=== PATIENT | female | born 1955 | race Caucasian/White ===

== ENCOUNTER 2024-03-07 16:29 | Emergency (ER) | payer BC ==
[~2024-03-07] VITALS: Ht 152.4 cm; Wt 102.1 kg
--- NOTE | 2024-03-07 16:50 | NUR ---
The patient [facility] 78 [facility] facility SOB. 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 Attached to the monitor.
[2024-03-07] MEDS ORDERED: ACETAMINOPHEN ES 500 MG TABLET ONE (17:11)
[2024-03-07] MEDS ORDERED: predniSONE 20 MG TABLET ONE (17:11)
[2024-03-07] MEDS: predniSONE 20 MG TABLET PO ONE (17:17)
[2024-03-07] MEDS: ACETAMINOPHEN ES 500 MG TABLET PO ONE (17:17)
[2024-03-07] MEDS ORDERED: ALBUTEROL FS 2.5 MG/3 ML VIAL.NEB ONE (17:25)
[2024-03-07] MEDS ORDERED: IPRATROPIUM NEB FS 0.5 MG/2.5 ML AMPUL.NEB ONE (17:25)
[2024-03-07] MEDS: ALBUTEROL FS 2.5 MG/3 ML VIAL.NEB NEB ONE (17:36)
[2024-03-07] MEDS: IPRATROPIUM NEB FS 0.5 MG/2.5 ML AMPUL.NEB NEB ONE (17:36)
[2024-03-07 17:37] VITALS: O2SAT 97
[2024-03-07 17:47] VITALS: O2SAT 99
[2024-03-07 17:48] VITALS: O2SAT 99
[2024-03-07 17:58] VITALS: O2SAT 100
[2024-03-07] MEDS ORDERED: IBUPROFEN 600 MG TABLET ONE (18:00)
[2024-03-07 18:02] VITALS: TEMP 98
[2024-03-07] MEDS: IBUPROFEN 400 MG TABLET PO ONE (18:02)
[2024-03-07 18:03] LABS: BASOPHILS # (AUTO) 0.1 K/uL (0.0-0.2); BASOPHILS % (AUTO) 0.9 % (0.0-2.0); EOSINOPHILS # (AUTO) 0.3 K/uL (0.0-0.7); EOSINOPHILS % (AUTO) 2.4 % (0.0-6.0); HEMATOCRIT 38 % (33-45); HEMOGLOBIN 11.8 g/dL (11.5-14.8); LYMPHOCYTES # (AUTO) 3.3 K/uL (0.8-4.8); LYMPHOCYTES % (AUTO) 22.9 % (20.0-44.0); MEAN CORPUSCULAR HEMOGLOBIN 25 PG (26.0-33.0); MEAN CORPUSCULAR HGB CONC 31 g/dl (31.0-36.0); MEAN CORPUSCULAR VOLUME 81 fL (82-100); MONOCYTES # (AUTO) 0.8 K/uL (0.1-1.30); MONOCYTES % (AUTO) 5.5 % (2.0-12.0); NEUTROPHILS # (AUTO) 9.7 K/uL (1.8-8.9); NEUTROPHILS % (AUTO) 68.3 % (43.0-81.0); PLATELET COUNT (AUTO) 370 K/uL (150-450); RED BLOOD CELL COUNT(AUTO) 4.66 MIL/uL (4.0-5.2); RED CELL DISTRIBUTION WIDTH 17.4 % (11.5-15.0); WHITE BLOOD COUNT (AUTO) 14.2 K/uL (4.3-11.0)
[2024-03-07 18:14] LABS: CALCIUM, SERUM 8.8 mg/dL (8.5-10.1); CARBON DIOXIDE 25 mmol/L (21-32); CHLORIDE 106 mmol/L (98-107); CREATININE 1.4 mg/dL (0.6-1.3); GLUCOSE 207 mg/dL (74-106); POTASSIUM 4.5 mmol/L (3.5-5.1); SODIUM SERUM 139 mmol/L (136-145); UREA NITROGEN, BLOOD 31 mg/dL (7-18)
--- NOTE | 2024-03-07 19:40 | NUR ---
COVID SWAB OBTAINED AND SENT TO LAB
[2024-03-07] MEDS ORDERED: KETOROLAC TROMETHAMINE 15 MG/ML VIAL ONE (21:19)
[2024-03-07] MEDS: KETOROLAC TROMETHAMINE 15 MG/ML VIAL IV ONE (21:26)
[2024-03-07] MEDS ORDERED: diphenhydrAMINE HCL ELIX 25 MG/10 ML UDC ONE (21:59)
[2024-03-07] MEDS ORDERED: PROCHLORPERAZINE EDISYLATE 10 MG/2 ML VIAL ONE (21:59)
[2024-03-07] MEDS: diphenhydrAMINE HCL ELIX 25 MG/10 ML UDC PO ONE (22:00)
[2024-03-07] MEDS: PROCHLORPERAZINE EDISYLATE 10 MG/2 ML VIAL IVP ONE (22:00)
[2024-03-07] MEDS ORDERED: ALBU8.5H8 INH (22:31)
[2024-03-07] MEDS ORDERED: ACET-2605 PO (22:31)
[2024-03-07] MEDS ORDERED: PRED50TA PO (22:31)
[2024-03-07] MEDS ORDERED: DOXY100C2 PO (22:46)
--- NOTE | 2024-03-07 23:11 | NUR ---
Patient discharged to home in stable condition. Written and verbal after care instructions given. Patient verbalizes understanding of instruction.IV removed. Catheter intact and site benign. Pressure and 4x4 applied to site. No bleeding noted.
[2024-03-07 23:12] VITALS: BP 120/75; O2SAT 99
== END 2024-03-07 23:10 | disposition home or self-care (01) ==
LOC: ER 16:35
DX: J45.901 Unspecified asthma with (acute) exacerbation (principal); G43.909 Migraine, unspecified, not intractable, without status migrainosus; I10 Essential (primary) hypertension; E11.9 Type 2 diabetes mellitus without complications; Z88.8 Allergy status to other drugs, medicaments and biological substances; Z20.822 Contact with and (suspected) exposure to COVID-19
CPT/HCPCS: 99285; 96374; 71045; 87426; 93005; 85025; 80048; 36415; 84484; 94640 ×2; J0780; Q0163; J7512; J1885